=== PATIENT | male | born 1965 | race Caucasian/White ===

== ENCOUNTER 2017-10-05 06:14 | Day surgery (SDC) | payer OTHER, SELFPAY ==
[2017-10-05 06:52] VITALS: BP 125/76; PULSE 59; RESP 16; TEMP 36.6; O2SAT 97; BMI 27.9
--- NOTE | 2017-10-05 07:32 | PCM.OPRPT ---
Problem List (1) Colon cancer screening Status: Acute Report of Operation Date of Procedure: 10/05/17 Pre-Operative Diagnosis: z12.11 screening colonoscopy Post-Operative Diagnosis: Same Surgery/Procedure Performed:: [id number] colonoscopy Type of Anesthesia:: MAC Anesthesiologist: Kale Adams Description of Procedure: Patient was brought into the endoscopy suite. Placed in the left lateral decubitus position. Was given graded anesthesia. Colonoscope was inserted into the rectum. It was directed through the sigmoid colon, descending colon, transverse colon, ascending colon, to the cecum without difficulty. Operative findings: 1. Cecum: Normal appearance no mass lesions normal ileocecal valve. 2. Ascending colon: Normal appearance no mass lesions. 3. Transverse colon: Normal appearance no mass lesions. 4. Descending colon: Normal appearance no mass lesions. 5. Sigmoid colon: Normal appearance moderate amount of diverticular disease was identified no mass lesions. 6. Rectum: Normal appearance no mass lesions retroflexion showed some in internal hemorrhoids scope was withdrawn digital rectal exam was performed showing prostate with no nodules he did have external hemorrhoids as well. Patient will need another colonoscopy in 10 years. - Admit VTE Documentation VTE Present on Admission: No VTE Mechan Device Prophylaxis: None VTE Pharm Prophylaxis ordered?: No Reason prophylaxis not ordered:: Treatment Not Indicated
--- NOTE | 2017-10-05 07:51 | PCM.HP.STD ---
Problem List (1) Colon cancer screening Status: Acute History of Present Illness Date of Admission: 10/05/17 The patient is a 52 year old M who presents for screening colonoscopy. Past Medical History Allergies No Known Allergies Allergy (Verified 09/19/17 10:11) Home Medications: Ambulatory Orders Medication Instructions Recorded Cholecalciferol (Vitamin D3) 2,000 unit PO DAILY 09/19/17 [Vitamin D3] Mv-Mn/FA/Vit K/Lycop/Lut/Coq10 2 each PO DAILY 09/19/17 [Daily Multivitamin Capsule] Sertraline HCl [Zoloft] 50 mg PO DAILY 09/19/17 Smoking Status: Never smoker - *Family History Maternal History Items: No pertinent history Review of Systems Cardiovascular: Denies: Chest Pain, Chest Pressure, Chest Tightness, Palpitations Respiratory: Denies: Cough, Hemoptysis, Shortness of breath at rest, Shortness of breath upon exertion, Wheezing Gastrointestinal: Denies: Abdominal Pain, Constipation, Diarrhea, Hematemesis, Nausea, Melena, Vomiting VTE Information - Inpt Only VTE Present on Admission: No VTE Mechan Device Prophylaxis: None VTE Pharm Prophylaxis ordered?: No Reason prophylaxis not ordered:: Treatment Not Indicated Patient Problems: Active and Suspected Problems Colon cancer screening (Acute) - Physical Exam Lungs: Clear to auscultation Cardiovascular: Regular rate, Regular Rhythm, No murmurs Abdomen: Bowel Sounds Present, Soft, Non Tender, Non-Distended Vital Signs Temp Pulse Resp BP Pulse Ox 97.8 F 59 L 16 125/76 H 97 10/05/17 06:52 10/05/17 06:52 10/05/17 06:52 10/05/17 06:52 10/05/17 06:52 Oxygen Delivery Method Room Air Weight: 173 lb 1.006 oz Body Mass Index (BMI) 27.9 Assessment/Plan Active and Suspected Problems Colon cancer screening (Acute) I plan is perform a colonoscopy
[2017-10-05 07:54] VITALS: BP 101/61; BP 125/76; PULSE 70; RESP 19; TEMP 36.3; O2SAT 95
[2017-10-05 08:00] VITALS: BP 125/76; BP 90/51; PULSE 65; RESP 16; O2SAT 96
[2017-10-05 08:05] VITALS: BP 125/76; BP 91/51; PULSE 56; RESP 16; O2SAT 96
[2017-10-05 08:10] VITALS: BP 100/62; BP 125/76; PULSE 57; RESP 16; TEMP 36.2; O2SAT 97
[2017-10-05 08:25] VITALS: BP 125/76
== END 2017-10-05 08:48 | disposition home or self-care (01) ==
LOC: EN 06:16 → AC 06:18
PROVIDERS: Family Provider Internal Medicine; PCP Internal Medicine; Visit Provider Surgery
PROC: 0DJD8ZZ Inspection of Lower Intestinal Tract, Via Natural or Artificial Opening Endoscopic (ICD-10-PCS; CPT 45378; principal; 2017-10-05 07:25)
DX: Z12.11 Encounter for screening for malignant neoplasm of colon (principal); K64.4 Residual hemorrhoidal skin tags; K64.8 Other hemorrhoids
CPT/HCPCS: 45378; J7120